=== PATIENT | female | born 1985 | race Caucasian/White ===

== ENCOUNTER 2019-05-09 23:53 | Inpatient (IN) | payer BC ==
[~2019-05-09] VITALS: Ht 162.6 cm; Wt 70.9 kg
[~2019-05-09 23:53] MED LIST: IBU600 MG PO; PERCOCET 325 MG1 TA2 PO; PRENATAL MVI
[2019-05-10] VITALS (17 sets, daily range): BP systolic 101–138; BP diastolic 50–84; PULSE 54–80; TEMP 97.3–98.1
--- NOTE | 2019-05-10 00:05 | NUR ---
G4L2 at 36 weeks and 5 days arrives to unit with complaint of contractions every 5 minutes since about 2100. Pt denies LOF or vaginal bleeding. Reports good movement. Pt denies headaches, blurry vision, or RUQ pain. Pt oriented to room, call light within reach, bed in low and locked position. Clean gown on. US and toco explained and applied. Plan of care reviewed with patient and spouse. SVE 6-/-1, membranes intact. GBS unknown. Dr. Petit notified, see physician notification.
--- NOTE | 2019-05-10 00:32 | NUR ---
18G IV started in left forearm, admission labs obtained off IV start. Lactated Ringers fluid bolus started. Consents reviewed with patient and spouse.
--- NOTE | 2019-05-10 00:50 | NUR ---
Pt feeling more pressure with contractions. SVE 8-9/100/0 bul[address] bag of water. [address] Petit notified, see physician notification. Pt encouraged to continue breathing through contractions. Nursery RN and charge nurse in room.
--- NOTE | 2019-05-10 01:11 | NUR ---
0102 - Dr. Petit at bedside, gowned and gloved. Room set up for delivery. 0105 - AROM by Dr. Petit, large amount of clear fluid noted on rupture. SVE /+1. 0111 - Spontaneous vaginal delivery of viable girl. Cord clamped and cut by Dr. Petit. True knot noted in cord. Care of assumed to FRANCISCO Lee. 0117 - Spontaneous delivery of intact placenta. Pitocin started at 333 mL/hr per protocol. Fundal massage by this RN, fundus firm and down 1 from umbilicus. No lacerations per Dr. Petit. Pericare provided. Ice pack to perineum. Pt repositioned in bed for comfort. recovery started.
[2019-05-10 01:27] LABS: BASO % 0.4 % (0.0-2.0); EOS % 0.3 % (0-4.0); GRAN # 6.9 (1.4-6.5); GRAN % 69.5 % (42.2-75.2); HEMOGLOBIN 12.4 g/dl (12.5-16.0); LYMPH % 20.2 % (20.0-51.0); MEAN CELL VOLUME 95 fl (80.0-100.0); MEAN CORPUSCULAR HEMOGLOBIN 33 pg (27.0-31.0); MEAN CORPUSCULAR HGB CONC 34 g/dl (33.0-37.0); MEAN PLATELET VOLUME 9.6 fl (7.4-10.4); MONO # 0.9 (0.1-0.6); MONO % 9.2 % (1.7-9.3); PLATELET COUNT 236 K/mm3 (130-400); RED BLOOD COUNT 3.82 M/mm3 (4.10-5.30); REDCELL DISTRIBUTION WIDTH-CV 13.6 % (11.5-14.5)
[2019-05-10 01:29] LABS: HEMATOCRIT 36.2 % (37.0-47.0)
[2019-05-10] MEDS ORDERED: IBU800 M1 PO (08:42)
--- NOTE | 2019-05-10 09:51 | NUR ---
Initial visit; Parents thanked Loft Worker Head for offering congratulations and God's blessings for the of their daughter. Loft Worker Head thanked family for choosing [facility].
[2019-05-11 07:00] VITALS: BP 99/62; PULSE 72; TEMP 97.9
--- NOTE | 2019-05-11 12:17 | NUR ---
stopped by and offered congrats.
[2019-05-11 16:00] VITALS: BP 104/58; PULSE 55; TEMP 98.1
[2019-05-11 19:40] VITALS: BP 114/53; PULSE 67; TEMP 98.2
--- NOTE | 2019-05-12 08:00 | NUR ---
Up and around taking shower. Denies any needs at this time.
[2019-05-12 08:15] VITALS: BP 103/72; PULSE 80; TEMP 98.1
[2019-05-12 16:15] VITALS: BP 111/58; PULSE 61; TEMP 98
--- NOTE | 2019-05-12 21:00 | NUR ---
PLAN TO GO [employer] STATUS WHEN CERTIFICATE COMPLETED. UNDECIDED ON NAME AT THIS TIME. DISCUSSING WITH NOW
== END 2019-05-12 23:29 | disposition home or self-care (01) | DRG 807 ==
LOC: LDRO 23:53 → LDR 05-10 00:15 → OB 05-10 03:30
PROVIDERS: Obstetrics & Gynecology; ADMIT Obstetrics & Gynecology
PROC: 10E0XZZ Delivery of Products of Conception, External Approach (ICD-10-PCS; principal; 2019-05-10)
DX: O60.23X0 Term delivery with preterm labor, third trimester, not applicable or unspecified (principal); Z37.0 Single live birth; O99.824 Streptococcus B carrier state complicating childbirth; O69 Labor and delivery complicated by umbilical cord complications; Z3A.36 36 weeks gestation of pregnancy
CPT/HCPCS: J0690; J2590; J7120